=== PATIENT | female | born 1950 | race Caucasian/White ===

== ENCOUNTER → 2018-06-12 | Outpatient (CLI) | payer OTHER, SELFPAY ==
[~2018-06-12] MED LIST: ALBU90OI6 INH; AMLO10 PO; ASPI81EC PO; ATOR10 PO; ESCI20 PO; LANS15EC PO; LISHYD2012 PO; LOW DOSE ASPIRI81 MG PO; OMEPRAZOLE MAGN20 MG PO; Zestril40 MG PO
[2018-06-12 20:08] LABS: Bun/Creatinine Ratio 11.1 (12.0-20.0); Calcium, Blood 8.5 mg/dL (8.5-10.1); Creatinine, Blood 0.99 mg/dL (0.40-1.00); Potassium, Blood 4.3 mmol/L (3.5-5.5)
== END | disposition home or self-care (01) ==
LOC: LAB SHORT 19:22 → LAB 19:22
PROVIDERS: Physician Assistant
DX: E87.1 Hypo-osmolality and hyponatremia (principal)
CPT/HCPCS: 80048

== ENCOUNTER 2018-07-29 07:20 | Day surgery (SDC) | payer OTHER ==
[~2018-07-29] VITALS: Wt 51.0 kg
--- NOTE | 2018-07-29 08:03 | NUR ---
Ambulatory in Day Surgery History, Chart, Medications and Allergies reviewed before start of procedure. Patient confirms NPO status and agrees with scheduled surgery. Patient States Post-Procedure ride home has been arranged.
--- NOTE | 2018-07-29 08:49 | NUR ---
07/29/18 0849 Perico Claire MONITOR INTACT WITH CONTINUOUS PULSE OXIMETRY AND INTERMITTENT BP. History, Chart, Medications and Allergies reviewed before start of procedure.3-LEAD EKG REVIEWED WITH PHYSICIAN PRIOR TO START OF PROCEDURE.O2 VIA N/C INTACT THROUGHOUT SEDATION/PROCEDURE.
--- NOTE | 2018-07-29 11:25 | NUR ---
Patient up to Ambulate independently. Gait steady. Discharge instructions reviewed with patient. Patient verbalizes understanding. Copy given to patient to take home. Patient States Post-Procedure ride home has been arranged. Discharged via wheelchair to private car for ride home.
== END 2018-07-29 11:28 | disposition home or self-care (01) ==
LOC: ORSCMMR 07:20 → ORD 07:30 → ORSCMMR 08:30 → ORD 08:30 → ORSCMMR 11:28
PROVIDERS: Internal Medicine Critical Care Medicine
PROC: 0BB48ZX Excision of Right Upper Lobe Bronchus, Via Natural or Artificial Opening Endoscopic, Diagnostic (ICD-10-PCS; principal; 2018-07-29 08:30)
DX: C34.11 Malignant neoplasm of upper lobe, right bronchus or lung (principal); I10 Essential (primary) hypertension; E78.5 Hyperlipidemia, unspecified; J44.9 Chronic obstructive pulmonary disease, unspecified; F17.210 Nicotine dependence, cigarettes, uncomplicated
CPT/HCPCS: 88305; 88341; 88342; J2250; J3010; J7120

== ENCOUNTER 2018-09-05 05:49 | Inpatient (IN) | payer OTHER ==
[~2018-09-05] VITALS: Ht 152.4 cm; Wt 50.5 kg
--- NOTE | 2018-09-05 06:32 | NUR ---
PT ADMITTED TO [facility]. AGREES WITH PLANNED SURGER. LUNGS SOUNDS DIMINSHED T/O.
--- NOTE | 2018-09-05 09:55 | NUR ---
PT LS DIMINISHED T/O IWTH DOROTHY EXP WHEEZES GREATER ON R SIDE. PT ENCOURAGE TO TAKE DEEP BREATHS AND COUGH. BIOX REMAINS 88%-91% ON 2L NC. DR. QUINTEROS NOTIFIED. VERBAL ORDERS FOR DOUNEB TREATMENT WHICH IS IN PROGRESS.
--- NOTE | 2018-09-05 10:20 | NUR ---
PT BIOX HAS NOT IMPROVED DISPITE BREATHING TREATMENT AND O2 THERAPY. RT CALLED TO EVALUATE PT. PT LS WITH INCREASED WHEEZES AND SEEMS TO BE MOVING A BIT MORE AIR BUT REMAINES DIMINSHED GREATER ON THE L SIDE. PT DENIES PAIN. APPEARS IN NO ACUTE DISTRESS. PT HAS ATTEMPTED US OF INCENTIVE SPEROMETER BUT IS UNABLE TO MOVE VALVE MUCH. PT STATES HAS DIFFICULTY NORMALLY TAKING LARGE BREATHS.
--- NOTE | 2018-09-05 11:15 | NUR ---
PT TAKEN TO RADIOLOGY BY THIS RN. PT DENIES DIFFICULT BREATHING OR PAIN WITH INSPIRATIONS. PT IS REQUIRING O2 AT 9L OXIMIZER TO MAINTAIN SATURATIONS ABOUT 91%.
--- NOTE | 2018-09-05 11:30 | NUR ---
SPOKE WITH RADIOLOGIST THAT PT HAD A LARGE L PNUEMO. CHARGE NURSE CONTACTED OR ROOM AND DR. LEMUS NOTIFIED OF PT CURRENT SITUATION.
--- NOTE | 2018-09-05 11:45 | NUR ---
HOSPITALIST AT BEDSIDE. DS STAFF HAS BEEN IN CONTACT WITH DR. LEMUS AND THE ER ABOUT PT CURRENT CONDITION AND NEED FOR CHEST TUBE PLACEMENT EMERGENTLY. PT IS ABLE TO TALK IN FULL SENTENCES. CONTINUES TO DENIES PAIN BUT STATES BREATHING IS MORE DIFFICULT. BRONCH ROOM SET UP FOR CHEST TUBE PLACEMENT.
--- NOTE | 2018-09-05 12:05 | NUR ---
HEIMLICK VALVE CHEST TUBE PLACED TO LEFT CHEST. PT TOLERATED WELL. PT REPORTS THAT HER BREATHING IS IMPROVING. OCCASIONAL CRY COUGH. PT BIOX UP TO 97% ON 15L AFTER CHEST TUBE PLACED. TITRATING O2 DOWN SOME TO 5L - WILL CONTINUE TO MINITOR PT.
--- NOTE | 2018-09-05 12:26 | NUR ---
PT REPORTS FEELING BETTER AFTER CHEST TUBE PLACED. PT DRINKING FLUIDS, BIOX 95% ON 2L AT THIS TIME. WILL CONTINUE TO MONITOR PT AND EVALUATE FOR NEED OF O2.
--- NOTE | 2018-09-05 12:37 | NUR ---
PT 94% ON RA. REPORTS FEELS MUCH BETTER. PTS AT BEDSIDE. WAITING FOR ROOM TO TRANSFER PT TO THE FLOOR.
--- NOTE | 2018-09-05 12:39 | NUR ---
PT BIOX ON RA DROPS TO 90% PT PLACED BACK ON REGULAR NS INSTEAD OF OXIMIZER. BIOX 92% ON 2L NC.
--- NOTE | 2018-09-05 13:31 | NUR ---
PT BIOX 89% ON 2L NC EVEN WITH ENCOURAGED DEEP BREATHING. PT DOES NOT APPEAR TO BE HAVING DIFFICULTY BREATHING. O2 INCREASED TO 3L AND PT TAKEN TO RADIOLOGY FOR CHEST XRAY FOR CHEST TUBE VERIFICATIONS. PT RETURNS, BIOX 95% ON 3L NC.
--- NOTE | 2018-09-05 14:15 | NUR ---
PT REPOSITIONED IN BED ON HER SIDE. PT C/O GENERALIZED BODY DISCOMFORT FROM LAYING IN BED. PT STATES SHE IS USUALLY UP AND MOVING. BIOX 96% ON 3L.
--- NOTE | 2018-09-05 15:20 | NUR ---
REPORT TO HERMAN RN - PT TRANSFERED TO PCU BY THIS RN.
--- NOTE | 2018-09-05 15:47 | NUR ---
09/05/18 1547 Jeane Arango PATIENT DEVELOPED A TENSION PNEUMOTHORAX IN STEPDOWN, PATIENT TAKEN EMERGENTLY TO ENDO 2 FOR CHEST TUBE PLACEMENT. NAREN ELDER WAS RN CARING FOR PATIENT. I ASSISTED WITH FACILITATION OF INTERVENTION ONLY.
--- NOTE | 2018-09-05 15:55 | NUR ---
TRANSFER FROM DAY SURGERY REPORT RECEIVED FROM NAREN BELL IN DAY SURGERY. PT ARRIVED VIA GURNEY AWAKE AND ALERT. SKIN PAINK, WARM. PT ABLE TO TRANSFER SELF TO BED. LEFT ANTERIOR HEMILICH VALVE TO RA. WITH DEEP BREATHING CAN HEAR THE HEIMLICH WORKING. SAT 95% ON 3L N/C. PT SITTING ON THE SIDE OF THE BED DRINKING DIET PEPSI. SPOUCE IN ATTENDANCE. VSS. CONTINUE POT.
--- NOTE | 2018-09-05 21:01 | NUR ---
ASSUMPTION OF CARE - SHIFT SUMMARY Assumed care of pt at 1630. Report recieved from admission discharge rnIvana BELL. Shift assessment completed. Pt on 1.5 LPM NC at assumption of care. Attempted to titrate pt to room air. Pt tolerated room air for about 20 minutes, then had to have supplemental O2 placed as O2 sats were 87-89%. Pt denied shortness of breath. No tachypnea or accessory muscle use noted. O2 sats recovered quickly after supplemental O2 provided. Pt was OOB several times to use bathroom. Pt tolerating activity well. Pt compliant with fall prevention interventions and utilizes call light before getting OOB. Bedside report given to oncoming RNNicki at 1915. Dressing to heimlich valve insertion site was peeling loose. Dressing reinforced.
[2018-09-06 03:59] LABS: BASOPHILS ABSOLUTE AUTO 0.02 K/mm3 (0.00-0.23); BASOPHILS PERCENT AUTO 0 % (0-2); EOSINOPHILS ABSOLUTE AUTO 0.09 K/mm3 (0.00-0.68); EOSINOPHILS PERCENT AUTO 2 % (0-6); Hematocrit 37.9 % (33.0-51.0); Hemoglobin 12.7 g/dL (11.5-16.0); IMMATURE GRAN ABSOLUTE AUTO 0.03 K/mm3 (0.00-0.10); IMMATURE GRAN PERCENT AUTO 1 % (0-1); LYMPHOCYTES ABSOLUTE AUTO 1.49 K/mm3 (0.84-5.20); LYMPHOCYTES PERCENT AUTO 25 % (21-46); MONOCYTES ABSOLUTE AUTO 0.61 K/mm3 (0.16-1.47); MONOCYTES PERCENT AUTO 10 % (4-13); Mean Corpuscular HGB 32.1 pg (26.0-34.0); Mean Corpuscular HGB Conc 33.5 g/dL (31.5-36.5); Mean Corpuscular Volume 96 fL (80-100); Mean Platelet Volume 10.3 fL (9.1-12.4); NEUTROPHILS ABSOLUTE AUTO 3.79 K/mm3 (1.96-9.15); NEUTROPHILS PERCENT AUTO 63 % (41-73); Platelet Count 191 K/mm3 (150-400); RDW Coefficient Variation 12.4 % (11.7-14.2); RDW Standard Deviation 44.4 fL (35.1-46.3); Red Blood Cell Count 3.96 M/mm3 (3.80-5.20); White Blood Cell Count 6.03 K/mm3 (4.00-11.30)
[2018-09-06 04:13] LABS: Anion Gap 7 mmol/L (6-16); Blood Urea Nitrogen 4 mg/dL (8-24); Bun/Creatinine Ratio 6.7 (12.0-20.0); CO2, Blood 28 mmol/L (21-32); Calcium, Blood 8.9 mg/dL (8.5-10.1); Chloride, Blood 103 mmol/L (98-108); Glomerular Filtration Rate >60 (60-); Glucose, Blood 87 mg/dL (70-99); Potassium, Blood 3.6 mmol/L (3.5-5.5); Sodium, Blood 138 mmol/L (136-145)
--- NOTE | 2018-09-06 07:28 | NUR ---
SHIFT SUMMARY: PATIENT DID WELL THIS SHIFT, WEAKNESS AND DIZZY SENSATION GONE BY 0000. PATIENT ABLE TO AMBULATE WITH ONLY MINOR SBA. 1 L NC NEEDED AT SLEEP OTHERWISE RA. NO ISSUES NOTED THIS SHIFT, VSS, CALL LIGHT WITHIN REACH, BED LOW AND LOCKED.
--- NOTE | 2018-09-06 11:30 | NUR ---
BEGINING OF SHIFT: ASSUMED CARE OF PT AT 0700, RECIVED REPORT FROM TANVI BELL. UPON ENTERING ROOM, PT WAS A/O X3 AND IS ABLE TO FOLLOW DIRECTIONS. PT IS ON 1 L OF 02 VIA NC AND IS EXPERIENCING DYSPNEA WITH EXCERTION. PT DENIES ANY DYSPNEA AT REST AND DENIES FEELING DIZZINESS WITH SITTING AT THE EDGE OF THE BED. PT REMAINS IN NS RYTHYM WITH HR IN THE 60'S. PT WAS SEEN BY DR. LEMUS AND PLACED PT ON [employer] WATER SEAL CHEST DRAIN SYSTEM, CURRENTLY NO DRAINAGE NOTED, HOWEVER SMALL AIR LEAK IS PRESENT WITH NO CREPITUS FELT. PT HAS BEEN AMBULATING WITH SBA ASSISTANCE DUE TO CORDS/LINES. WHEN GIVING MORNING MEDS, THE PT QUESTIONED THE REASON FOR MORNING MEDS STATING " I ALREADY TOOK MY MORNING MEDS". AFTER REVEWING THE EMAR, PT WAS THEN EDUCATED ON WHAT MEDS WERE TAKEN AND WHAT MEDS WOULD BE GIVEN. PT THEN STATED " I UNDERSTAND". BEFORE GIVING MEDS, PT AND THIS STUDENT NURSE WENT OVER HOME MEDICATIONS TOGETHER. PT HAS NO COMPLAINTS AT THIS TIME, BED AT LOWEST POSITION AND CALL LIGHT IS WITHIN REACH. WILL CONTINUE TO MONIOTR FOR CHANGES.
--- NOTE | 2018-09-06 17:27 | NUR ---
END OF SHIFT REPORT: PT HAS BEEN SITTING IN CHAIR FOR THE MAJORITY OF THE AFTERNOON. PT HAS BEEN ON ROOM AIR WHILE AT REST AND IS ABLE TO MAINTAIN OXYGEN SATURATIONS ABOVE 90 %. HOWEVER, PT STILL REQUIERES SUPPLEMENTAL 1 L OXYGEN VIA NC WHILE AMBULATING TO RESTOOM, DUE TO OXYGEN DECREASING TO 85-88 % WITH ACTIVITY. PT STATES " I FORGET TO BREATH WHEN I AM WALKING, AND AT TIMES I DO NOT KNOW IF I AM SHORT OF BREATH". PT WAS ENCOURAGED TO USE OXYGEN WHILE AMBULATING AND TO ADVISE STAFF WHEN ATTEMPTING TO AMBULATE. PT DENIES ANY DIZZINESS, OR LIGHTHEADEDNESS WHEN CHANGING POSITIONS. PT CHEST DRAINAGE SYSTEM HAS LESS THAN 5ML OF DRAINAGE THIS SHIFT. PT HAS NO COMPLAINTS AT THIS TIME. WILL CONTINUE TO MONITOR UNTIL REPORT IS GIVEN TO BLAST FURNACE HELPER.
--- NOTE | 2018-09-07 01:49 | NUR ---
CHEST TUBE APPROX 0000 PATIENT ACCIDENTALLY PULLED PNEUMOTHORAX CATHETER OUT OF CHEST. SUTURES AND CATHETER STABALIZING DEVICE STILL INTACT. NO NEW BLEEDING, BRUISING, HEMATOMA OR CREPITUS NOTED. PATIENT VSS, NO PAIN. MD SCOTT NOTIFIED, NO NEW ORDERS RECIEVED. MONITORING PATIENT CLOSELY PER MD ORDERS, NURSING ROUNDS INCREASED, PATIENT EDUCATED ON WHAT TO REPORT.
[2018-09-07 04:16] LABS: Hematocrit 39.2 % (33.0-51.0); Hemoglobin 13.2 g/dL (11.5-16.0); Mean Corpuscular HGB 32.2 pg (26.0-34.0); Mean Corpuscular HGB Conc 33.7 g/dL (31.5-36.5); Mean Corpuscular Volume 96 fL (80-100); Mean Platelet Volume 10.4 fL (9.1-12.4); Platelet Count 177 K/mm3 (150-400); RDW Coefficient Variation 12.3 % (11.7-14.2); RDW Standard Deviation 42.7 fL (35.1-46.3); White Blood Cell Count 6.97 K/mm3 (4.00-11.30)
--- NOTE | 2018-09-07 05:51 | NUR ---
SHIFT SUMMARY PATIENT REMAINED STABLE THROUGHOUT THE SHIFT, ALERT AND ORIENTED. REMAINED NORMAL SINUS RHYTHM WITH HEART RATES IN THE 60'S. OXYGEN SATURATION ABOVE 90%. BED LOCK AND ON LOW POSITION. CALL LIGHT WITHIN REACH.
--- NOTE | 2018-09-07 08:00 | NUR ---
pt laying in bed awake a/ox3, pleasant and cooperative with care, follows commands well, denies pain, states she is doing well, just gets sob when she gets up to the br. no cough noted, lungs are course in [place], dim in bases, isela left side, is on 3 liters 02 via n/c, resp even and unlabored, hrr, tele in place running sr per monitor, see strip, no edema noted, ppp+2, cap refill <3sec, vs stable, afebrile, iv site is clear and patent, btx4, abd flat soft nontender, voids without diff, skin has a dressing in place to lcw, no drainage noted, this is mediport placement, has a hemlich chest tube to left lateral/anterial dressing in place there are bubles noted in chest tube chamber, pt states she pulled on it durring the night, she thinks she rolled over and it pulled out, Dr. Perry was notified of this, maew, up indep just needs help with lines, alethea. Dr. Perry in room and removed tube, as it was most of the way out, will replace. spouce in room. call light in reach.
--- NOTE | 2018-09-07 13:30 | NUR ---
Dr. Perry replaced chest tube after chest xray was done. pt has some crepitus noted to left neck, and face, lesser swelling noted to right side. called Dr. Perry he said nothing to worry about, and ordered cxray. informed the pt. call light in reach.
--- NOTE | 2018-09-07 16:30 | NUR ---
RECEIVED REPORT FROM RAY RAMÍREZ, AND WILL ASSUME CARE OF PT WHEN TRANSFERRED TO ROOM 209.
--- NOTE | 2018-09-07 18:00 | NUR ---
PT HAS BEEN CHANGED TO SURGICAL FLOOR STATUS, SHE WAS INFORMED OF THIS CHANGE. REPORT WAS GIVEN TO RECIEVING NURSE, PT WAS TAKEN VIA WHEELCHAIR TO 210. ALL BELONGINGS WENT WITH HER, SPOUCE IN ATTENDENCE.
--- NOTE | 2018-09-07 18:05 | NUR ---
TRANSFER NURSE NOTE RECEIVED PT FROM PCU INTO ROOM 210. ALERT AND ORIENTED X 4. SR ON TELEMETRY. LUNGS DIMINISHED THROUGHOUT, 2L O2 NC, SATS MID TO HIGH 90%'S, PIGTAIL CHEST TUBE IN PLACE TO LOW CONTINUOUS SUCTION, NOTED AIR LEAK AND SEROSANGUINOUS DRAINAGE, 28 CC. CHEST TUBE DRESSING OPEN ON ONE EDGE, USED OCCLUSIVE TAPE TO CLOSE THE DRESSING. ADDED WATER TO CHEST TUBE TO FILL IRENE. AMBULATES TO THE BATHROOM INDEPENDENTLY.
--- NOTE | 2018-09-08 07:23 | NUR ---
SHIFT SUMMARY PT RESTED WELL THIS AM. AAOX4. CHEST TUBE TO LEFT CW SECURE WITH CREPITUS NOTED TO LEFT UPPER CHEST, NO ACUTE CHANGE FROM DAY SHIFT RN REPORT. DR MILLER PER DAY SHIFT RN. AT SHIFT CHANGE, PT UP TO RESTROOM WITH CANISTER. UPON PT EXITING RESTROOM, PT REPORTS CANISTER TIPPED WITH SCANT AMOUNT FLUID SPILLED. CONTAINER ASSESSED WITH SMALL AMOUNT FLUID ADDED TO CANISTER. O2 DECREASED TO 2L VIA NC. PT REPORTING FEELING "DECREASED SOB" THIS AM. CALL LIGHT IN REACH + WILL CONTINUE TO MONITOR.
--- NOTE | 2018-09-08 10:00 | NUR ---
ISTRATE INFORMED OF INCREASING CREPITUS UP THE NECK/FACE AND BACK, NOTED MORE SWOLLING THAN YESTERDAY. THE CREPITUS IS JUST UNDER THE EYE SOCKETS BILATERAL FACE. PT STATES SHE DOES NOT FEEL IT IN HER EYES.
--- NOTE | 2018-09-08 11:05 | NUR ---
RADIOLOGY AT BEDSIDE FOR CHEST XRAY.
--- NOTE | 2018-09-08 13:00 | NUR ---
CALLED DR. DE LA CRUZ RE: INCREASING CREPITUS WHERE TISSUE UNDER BILATERAL EYES ARE SWELLING, THE LEFT EYE IS SWOLLEN/ALMOST CLOSED. PAGED DR. LEMUS, IN SURGERY AT THIS TIME, AWAITING RETURNED CALL. PATIENT WILL BE GOING TO RADIOLOGY [facility] FOR NECK XRAY TO EVALUATE CREPITUS.
--- NOTE | 2018-09-08 13:14 | NUR ---
PATIENT TAKEN DOWN TO RADIOLOGY FOR XRAY VIA WHEELCHAIR.
--- NOTE | 2018-09-08 13:17 | NUR ---
PATIENT RETURNED TO ROOM FOLLOWING NECK XRAY TO EVALUATION CREPITUS.
--- NOTE | 2018-09-08 13:50 | NUR ---
DR. LEMUS AT BEDSIDE FOR EVALUATION. STATED THE CREPITUS WILL CLEAR UP OVER TIME AND NOTED THERE WAS NO AIR LEAK IN THE CHEST TUBE.
--- NOTE | 2018-09-09 06:38 | NUR ---
SHIFT SUMMARY: PT A&O X4 T/O SHIFT. VS WNL. ON 2 L O2 PER NC. REPORTS SOB UPON EXERTION. OOB SEVERAL TIMES TO BSC WITH ONE SBA. PT INSTUCTED TO CALL WHEN NEEDING TO GET OUT OF BED D/T CHEST TUBE. RESTING WELL T/O SHIFT. ARIANNA HEARD UPON AUSCULATION THIS AM. CHEST TUBE DRESSING CDI. EYE REMAINS SWOLLEN, HOWEVER SOME IMPROVEMENT PATIENT CAN NOW OPEN LEFT EYE.
--- NOTE | 2018-09-09 06:50 | NUR ---
recvd report from previous shift RN Renay, pt asleep in bed, bed in lowest position, call light within reach bedrails up x 2
--- NOTE | 2018-09-09 07:10 | NUR ---
recvd report from previous rn leticia, pt sleeping in bed, bed in lowest position, bed rails up x 2, call light within reach.
--- NOTE | 2018-09-09 18:36 | NUR ---
SHIFT SUMMARY: PT REMAINED A/O X 4, PLEASANT/COOPERATIVE, NO N/V, NO SOB T/O SHIFT. OOB TO COMMODE WITH ASSISTANCE, USED CALL LIGHT APPROPRIATELY FOR ASSISTANCE TO USE THE COMMODE. CHEST TUBE REMAINED INTACT T/O SHIFT, DR LEMUS REMOVED SUCTION WHEN ROUNDING AND GAVE ORDERS TO LEAVE OFF SUCTION. PT REMAINED >90% SPO2, NO SOB. TOLERATED PO INTAKE, STATES TO NO PAIN. URINE OUTPUT >500 ML. CHEST X-RAY COMPLETE
[2018-09-10 04:54] LABS: BASOPHILS ABSOLUTE AUTO 0.01 K/mm3 (0.00-0.23); BASOPHILS PERCENT AUTO 0 % (0-2); EOSINOPHILS ABSOLUTE AUTO 0.07 K/mm3 (0.00-0.68); EOSINOPHILS PERCENT AUTO 1 % (0-6); Hematocrit 37.1 % (33.0-51.0); Hemoglobin 12.7 g/dL (11.5-16.0); IMMATURE GRAN ABSOLUTE AUTO 0.05 K/mm3 (0.00-0.10); IMMATURE GRAN PERCENT AUTO 1 % (0-1); LYMPHOCYTES ABSOLUTE AUTO 2.34 K/mm3 (0.84-5.20); LYMPHOCYTES PERCENT AUTO 25 % (21-46); MONOCYTES ABSOLUTE AUTO 0.72 K/mm3 (0.16-1.47); MONOCYTES PERCENT AUTO 8 % (4-13); Mean Corpuscular HGB 32.7 pg (26.0-34.0); Mean Corpuscular HGB Conc 34.2 g/dL (31.5-36.5); Mean Corpuscular Volume 96 fL (80-100); Mean Platelet Volume 10.6 fL (9.1-12.4); NEUTROPHILS ABSOLUTE AUTO 6.03 K/mm3 (1.96-9.15); NEUTROPHILS PERCENT AUTO 65 % (41-73); Platelet Count 203 K/mm3 (150-400); RDW Coefficient Variation 12.3 % (11.7-14.2); RDW Standard Deviation 43.3 fL (35.1-46.3); Red Blood Cell Count 3.88 M/mm3 (3.80-5.20); White Blood Cell Count 9.22 K/mm3 (4.00-11.30)
[2018-09-10 05:08] LABS: Anion Gap 6 mmol/L (6-16); Blood Urea Nitrogen 13 mg/dL (8-24); CO2, Blood 31 mmol/L (21-32); Calcium, Blood 8.7 mg/dL (8.5-10.1); Chloride, Blood 101 mmol/L (98-108); Creatinine, Blood 0.62 mg/dL (0.40-1.00); Glomerular Filtration Rate >60 (60-); Glucose, Blood 79 mg/dL (70-99); Sodium, Blood 138 mmol/L (136-145)
--- NOTE | 2018-09-10 06:40 | NUR ---
SHIFT SUMMARY PT IS POD 7 MEDIPORT INSERTION AND CHEST TUBE PLACEMENT R/T PNEUMOTHORAX. PT IS ALERT AND ORIENTED, INDEPENDENT IN ROOM, SBA TO BEDSIDE COMMODE. PT DENIED SOB ABOVE BASELINE, MAINTAINED 02 SATS >90% ON 1L 02. PT DENIES N/V AND PAIN THIS SHIFT. TOLERATING REGULAR DIET. CHEST TUBE IS INTACT, NOT CONNECTED TO SUCTION, NO DRAINAGE NOTED, NOT FLUCTUATING. SIGNIFICANT CREPITUS NOTED IN SHOULDERS BILATERALLY, IN LEFT FACE AND NECK, AND LEFT EYE.
--- NOTE | 2018-09-10 15:10 | NUR ---
DC'D HOME, DC INSTRUCTIONS GIVEN, VERBALIZED UNDERSTANDING, CHEST TUBE DC'D BY DR. LEMUS.
== END 2018-09-10 15:08 | disposition home or self-care (01) | DRG 180 ==
LOC: ORSCMMR 05:49 → ORD 07:30 → PCU 12:10 → ORSCMMR 12:10 → PCU 12:10 → SURS 09-06 16:56 → PCU 09-06 16:56 → SURS 09-07 18:25
PROVIDERS: Family Medicine; ADMIT Surgery
PROC: 02HV33Z Insertion of Infusion Device into Superior Vena Cava, Percutaneous Approach (ICD-10-PCS; principal; 2018-09-05 07:30)
PROC: 02HV33Z Insertion of Infusion Device into Superior Vena Cava, Percutaneous Approach (ICD-10-PCS; 2018-09-06)
DX: C34.11 Malignant neoplasm of upper lobe, right bronchus or lung (principal); J96.91 Respiratory failure, unspecified with hypoxia; J95.811 Postprocedural pneumothorax; T79.7XXA Traumatic subcutaneous emphysema, initial encounter; I10 Essential (primary) hypertension; F32.9 Major depressive disorder, single episode, unspecified; K21.9 Gastro-esophageal reflux disease without esophagitis; F17.210 Nicotine dependence, cigarettes, uncomplicated
CPT/HCPCS: 36415; 70360; 71045; 71046; 77001; 80048; 85025; 85027; 96372; C1729; C1788; C9113; G0378; J0690; J1642; J1650; J2250; J2704; J2930; J3010; J7120; J7512

== ENCOUNTER → 2018-10-10 | Outpatient (CLI) | payer OTHER ==
[2018-10-10 12:46] LABS: Alanine Aminotransfer (ALT/SGP 24 U/L (12-78); Albumin, Blood 3.5 g/dL (3.4-5.0); Albumin/Globulin Ratio 1.4 (0.8-1.8); Alk Phos 70 U/L (50-136); Anion Gap 7 mmol/L (6-16); Aspartate Aminotrans (AST/SGOT 24 U/L (12-37); Bilirubin, Total 0.5 mg/dL (0.1-1.0); Blood Urea Nitrogen 7 mg/dL (8-24); Bun/Creatinine Ratio 9.8 (12.0-20.0); CO2, Blood 27 mmol/L (21-32); Calcium, Blood 8.5 mg/dL (8.5-10.1); Chloride, Blood 100 mmol/L (98-108); Creatinine, Blood 0.72 mg/dL (0.40-1.00); Globulin, Blood 2.5 g/dL (2.2-4.0); Glomerular Filtration Rate >60 (60-); Glucose, Blood 108 mg/dL (70-99); Magnesium, Blood 1.4 mg/dL (1.6-2.4); Potassium, Blood 4.1 mmol/L (3.5-5.5); Sodium, Blood 134 mmol/L (136-145)
== END | disposition home or self-care (01) ==
LOC: LAB 11:55 → LAB SHORT 11:55
PROVIDERS: Internal Medicine Hematology & Oncology
DX: C34.11 Malignant neoplasm of upper lobe, right bronchus or lung (principal)
CPT/HCPCS: 80053; 83735

== ENCOUNTER → 2018-11-14 | Outpatient (CLI) | payer OTHER ==
[2018-11-14 15:58] LABS: BASOPHILS ABSOLUTE AUTO 0.02 K/mm3 (0.00-0.23); BASOPHILS PERCENT AUTO 1 % (0-2); EOSINOPHILS ABSOLUTE AUTO 0.02 K/mm3 (0.00-0.68); EOSINOPHILS PERCENT AUTO 1 % (0-6); Hematocrit 30.3 % (33.0-51.0); Hemoglobin 10.4 g/dL (11.5-16.0); IMMATURE GRAN ABSOLUTE AUTO 0.03 K/mm3 (0.00-0.10); IMMATURE GRAN PERCENT AUTO 1 % (0-1); LYMPHOCYTES ABSOLUTE AUTO 0.48 K/mm3 (0.84-5.20); LYMPHOCYTES PERCENT AUTO 12 % (21-46); MONOCYTES ABSOLUTE AUTO 0.38 K/mm3 (0.16-1.47); MONOCYTES PERCENT AUTO 10 % (4-13); Mean Corpuscular HGB 34.8 pg (26.0-34.0); Mean Corpuscular HGB Conc 34.3 g/dL (31.5-36.5); Mean Corpuscular Volume 101 fL (80-100); Mean Platelet Volume 10.1 fL (9.1-12.4); NEUTROPHILS ABSOLUTE AUTO 3.08 K/mm3 (1.96-9.15); NEUTROPHILS PERCENT AUTO 77 % (41-73); Platelet Count 215 K/mm3 (150-400); RDW Coefficient Variation 15.8 % (11.7-14.2); RDW Standard Deviation 57.5 fL (35.1-46.3); Red Blood Cell Count 2.99 M/mm3 (3.80-5.20); White Blood Cell Count 4.01 K/mm3 (4.00-11.30)
== END | disposition home or self-care (01) ==
LOC: LAB SHORT 15:45 → LAB 15:45
PROVIDERS: Internal Medicine Hematology & Oncology
DX: C34.11 Malignant neoplasm of upper lobe, right bronchus or lung (principal)
CPT/HCPCS: 85025

== ENCOUNTER → 2021-01-04 | Outpatient (CLI) | payer OTHER | END | disposition home or self-care (01) | LOC: LAB 13:50 → LAB SHORT 13:50 | PROVIDERS: Physician Assistant | DX: Z12.4 Encounter for screening for malignant neoplasm of cervix (principal) | CPT/HCPCS: 87624; G0123 ==

== ENCOUNTER → 2023-08-21 | Outpatient (CLI) | payer OTHER ==
[2023-08-21 18:50] LABS: Uric Acid, Blood 4.1 mg/dL (2.6-6.0)
[2023-08-21 18:58] LABS: Albumin, Blood 3.9 g/dL (3.4-5.0); Anion Gap 10 mmol/L (3-11); Blood Urea Nitrogen 12 mg/dL (8-24); Bun/Creatinine Ratio 17.3 (12.0-20.0); CO2, Blood 25 mmol/L (21-32); Calcium, Blood 9.3 mg/dL (8.5-10.1); Chloride, Blood 98 mmol/L (98-108); Creatinine, Blood 0.69 mg/dL (0.40-1.00); Glomerular Filtration Rate 93 (60-); Glucose, Blood 93 mg/dL (70-99); Phosphorus, Blood 4.4 mg/dL (2.5-4.9); Potassium, Blood 4.3 mmol/L (3.5-5.5); Sodium, Blood 129 mmol/L (136-145)
== END | disposition home or self-care (01) ==
LOC: LAB SHORT 14:28 → LAB 14:28
PROVIDERS: Hospitalist
DX: E87.1 Hypo-osmolality and hyponatremia (principal)
CPT/HCPCS: 36415; 80069; 83935; 84443; 84550

== ENCOUNTER → 2023-10-10 | Outpatient (CLI) | payer OTHER ==
[2023-10-10 17:34] LABS: BASOPHILS ABSOLUTE AUTO 0.04 K/mm3 (0.00-0.23); BASOPHILS PERCENT AUTO 1 % (0-2); EOSINOPHILS ABSOLUTE AUTO 0.08 K/mm3 (0.00-0.68); EOSINOPHILS PERCENT AUTO 2 % (0-6); Hematocrit 42.8 % (33.0-51.0); IMMATURE GRAN ABSOLUTE AUTO 0.02 K/mm3 (0.00-0.10); IMMATURE GRAN PERCENT AUTO 0 % (0-1); LYMPHOCYTES ABSOLUTE AUTO 0.98 K/mm3 (0.84-5.20); LYMPHOCYTES PERCENT AUTO 19 % (21-46); MONOCYTES ABSOLUTE AUTO 0.53 K/mm3 (0.16-1.47); MONOCYTES PERCENT AUTO 10 % (4-13); Mean Corpuscular HGB 33.1 pg (26.0-34.0); Mean Corpuscular Volume 95 fL (80-100); Mean Platelet Volume 10.4 fL (9.1-12.4); NEUTROPHILS ABSOLUTE AUTO 3.49 K/mm3 (1.96-9.15); NEUTROPHILS PERCENT AUTO 68 % (41-73); Platelet Count 221 K/mm3 (150-400); RDW Coefficient Variation 12.1 % (11.7-14.2); RDW Standard Deviation 42.3 fL (35.1-46.3); Red Blood Cell Count 4.53 M/mm3 (3.80-5.20); White Blood Cell Count 5.14 K/mm3 (4.00-11.30)
[2023-10-10 18:27] LABS: Alanine Aminotransfer (ALT/SGP 27 U/L (12-78); Albumin, Blood 4.1 g/dL (3.4-5.0); Albumin/Globulin Ratio 1.2 (0.8-1.8); Alk Phos 97 U/L (50-136); Anion Gap 11 mmol/L (3-11); Aspartate Aminotrans (AST/SGOT 36 U/L (12-37); Bilirubin, Total 0.6 mg/dL (0.1-1.0); Blood Urea Nitrogen 8 mg/dL (8-24); Bun/Creatinine Ratio 11.6 (12.0-20.0); CHOL/HDL RATIO 1.6; CO2, Blood 26 mmol/L (21-32); Calcium, Blood 9.2 mg/dL (8.5-10.1); Chloride, Blood 102 mmol/L (98-108); Cholesterol 197 mg/dL (50-200); Creatinine, Blood 0.69 mg/dL (0.40-1.00); Globulin, Blood 3.4 g/dL (2.2-4.0); Glomerular Filtration Rate 93 (60-); Glucose, Blood 84 mg/dL (70-99); HDL Cholesterol 125 mg/dL (>39); LDL/HDL RATIO 0.5; Low Density Lipoprotein Chol 61 mg/dL (0-110); Potassium, Blood 4.1 mmol/L (3.5-5.5); Sodium, Blood 135 mmol/L (136-145); Total Protein, Blood 7.5 g/dL (6.4-8.2); Triglycerides 54 mg/dL (30-160); Very Low Density Lipoprot Chol 10 mg/dL (6-32)
== END | disposition home or self-care (01) ==
LOC: LAB SHORT 15:03 → LAB 15:03
PROVIDERS: Physician Assistant
DX: Z51.81 Encounter for therapeutic drug level monitoring (principal); Z79.899 Other long term (current) drug therapy
CPT/HCPCS: 80053; 80061; 82306; 83036; 84443; 85025

== ENCOUNTER → 2024-06-12 | Outpatient (CLI) | payer OTHER ==
[2024-06-12 19:10] LABS: BASOPHILS ABSOLUTE AUTO 0.06 K/mm3 (0.00-0.23); BASOPHILS PERCENT AUTO 1 % (0-2); EOSINOPHILS ABSOLUTE AUTO 0.07 K/mm3 (0.00-0.68); EOSINOPHILS PERCENT AUTO 1 % (0-6); Hematocrit 39.9 % (33.0-51.0); Hemoglobin 14.5 g/dL (11.5-16.0); IMMATURE GRAN ABSOLUTE AUTO 0.02 K/mm3 (0.00-0.10); IMMATURE GRAN PERCENT AUTO 0 % (0-1); LYMPHOCYTES ABSOLUTE AUTO 1.09 K/mm3 (0.84-5.20); LYMPHOCYTES PERCENT AUTO 17 % (21-46); MONOCYTES ABSOLUTE AUTO 0.59 K/mm3 (0.16-1.47); MONOCYTES PERCENT AUTO 9 % (4-13); Mean Corpuscular HGB 34.1 pg (26.0-34.0); Mean Corpuscular HGB Conc 36.3 g/dL (31.5-36.5); Mean Corpuscular Volume 94 fL (80-100); NEUTROPHILS ABSOLUTE AUTO 4.49 K/mm3 (1.96-9.15); NEUTROPHILS PERCENT AUTO 71 % (41-73); Platelet Count 239 K/mm3 (150-400); RDW Coefficient Variation 12.4 % (11.7-14.2); RDW Standard Deviation 42.5 fL (35.1-46.3); Red Blood Cell Count 4.25 M/mm3 (3.80-5.20); White Blood Cell Count 6.32 K/mm3 (4.00-11.30)
[2024-06-13 02:36] LABS: Alanine Aminotransfer (ALT/SGP 28 U/L (12-78); Albumin, Blood 4.1 g/dL (3.4-5.0); Albumin/Globulin Ratio 1.3 (0.8-1.8); Alk Phos 82 U/L (50-136); Anion Gap 11 mmol/L (3-11); Aspartate Aminotrans (AST/SGOT 36 U/L (12-37); Bilirubin, Total 0.6 mg/dL (0.1-1.0); Blood Urea Nitrogen 10 mg/dL (8-24); Bun/Creatinine Ratio 14.6 (12.0-20.0); CHOL/HDL RATIO 1.5; CO2, Blood 26 mmol/L (21-32); Calcium, Blood 9.5 mg/dL (8.5-10.1); Chloride, Blood 101 mmol/L (98-108); Cholesterol 205 mg/dL (50-200); Creatinine, Blood 0.68 mg/dL (0.40-1.00); Globulin, Blood 3.2 g/dL (2.2-4.0); Glomerular Filtration Rate 93 (60-); Glucose, Blood 82 mg/dL (70-99); HDL Cholesterol 140 mg/dL (>39); LDL/HDL RATIO 0.4; Low Density Lipoprotein Chol 54 mg/dL (0-110); Potassium, Blood 5.2 mmol/L (3.5-5.5); Sodium, Blood 133 mmol/L (136-145); Total Protein, Blood 7.3 g/dL (6.4-8.2); Triglycerides 53 mg/dL (30-160); Very Low Density Lipoprot Chol 10 mg/dL (6-32)
== END ==
LOC: LAB SHORT 17:39
PROVIDERS: Physician Assistant
DX: Z51.81 Encounter for therapeutic drug level monitoring (principal); Z79.899 Other long term (current) drug therapy
CPT/HCPCS: 80053; 80061; 82306; 83036; 84443; 85025

== ENCOUNTER → 2025-01-01 | Outpatient (CLI) | payer OTHER | LOC: LAB SHORT 09:19 → LAB 09:19 | DX: E87.1 Hypo-osmolality and hyponatremia (principal) | CPT/HCPCS: 83935 ==